=== PATIENT | male | born 1930 | race Caucasian/White ===

== ENCOUNTER 2020-02-18 08:07 | Emergency (ER) | payer MEDICARE, BC ==
[2020-02-18 08:32] LABS: ABSOLUTE EOSINOPHILS # (AUTO) 0.2 10^3/uL (0.0-0.6); ABSOLUTE LYMPHOCYTES (AUTO) 1.5 10^3/uL (0.5-4.7); ABSOLUTE MONOCYTES (AUTO) 0.7 10^3/uL (0.1-1.4); ABSOLUTE NEUT (AUTO) 3.6 10^3/uL (1.7-8.2); BASOPHILS % (AUTO) 0.4 % (0-2); EOSINOPHILS % (AUTO) 2.8 % (0-6); HEMATOCRIT 30.6 % (37.9-51.0); HEMOGLOBIN 10.2 g/dL (13.5-17.0); LYMPHOCYTES % (AUTO) 25.2 % (13-45); MEAN CORPUSCULAR HEMOGLOBIN 30.1 pg (27.0-33.4); MEAN CORPUSCULAR HGB CONC 33.5 g/dL (32.0-36.0); MEAN CORPUSCULAR VOLUME 90 fl (80-97); MONOCYTES % (AUTO) 11.7 % (3-13); PLATELET COUNT 143 10^3/uL (150-450); RED BLOOD COUNT 3.41 10^6/uL (4.35-5.55); RED CELL DISTRIBUTION WIDTH 14.7 % (11.5-14.0); SEGMENTED NEUTROPHILS % (AUTO) 59.9 % (42-78); TOTAL CELLS COUNTED % (AUTO) 100 %
[2020-02-18 09:01] LABS: ALBUMIN 3.4 g/dL (3.5-5.0); ALKALINE PHOSPHATASE 34 U/L (38-126); ASPARTATE AMINO TRANSFERASE 16 U/L (17-59); BILIRUBIN,TOTAL 0.2 mg/dL (0.2-1.3); BLOOD UREA NITROGEN 14 mg/dL (7-20); CALCIUM 8.2 mg/dL (8.4-10.2); CARBON DIOXIDE 34 mmol/L (22-30); CHLORIDE 102 mmol/L (98-107); CREATINE KINASE 59 U/L (55-170); GLUCOSE 115 mg/dL (75-110); POTASSIUM 4.2 mmol/L (3.6-5.0); TOTAL PROTEIN 5.8 g/dL (6.3-8.2)
[2020-02-18 09:08] LABS: ANION GAP 3 (5-19)
[2020-02-18 09:13] LABS: CREATINE KINASE MB 1.72 ng/mL (<4.55)
[2020-02-18 09:18] LABS: TROPONIN I < 0.012 ng/mL
[2020-02-18] MEDS ORDERED: ASPIRIN 81 MG TABLET, CHEWABLE PO ONE (10:42)
[2020-02-18] MEDS ORDERED: NITROGLYCERIN 2% OINTMENT 1 GM PACKET TP ONE (10:43)
[2020-02-18 10:58] LABS: PROTHROMBIN TIME 13.2 SEC (11.4-15.4)
[2020-02-18 10:59] LABS: PARTIAL THROMBOPLASTIN TIME 30.8 SEC (23.5-35.8)
[2020-02-18 11:25] LABS: APPEARANCE,URINE CLEAR; BILIRUBIN,URINE NEGATIVE (NEGATIVE); COLOR,URINE STRAW; GLUCOSE, URINE NEGATIVE (NEGATIVE); KETONES,URINE NEGATIVE (NEGATIVE); LEUKOCYTE ESTERASE,URINE NEGATIVE (NEGATIVE); NITRITE,URINE NEGATIVE (NEGATIVE); PROTEIN,URINE NEGATIVE (NEGATIVE); URINE SPECIFIC GRAVITY 1.006; UROBILINOGEN,URINE NEGATIVE mg/dL (<2.0)
--- NOTE | 2020-02-18 11:50 | EKG REPORT ---
SEVERITY:- BORDERLINE ECG - SINUS RHYTHM BORDERLINE ST ELEVATION, ANTERIOR LEADS : Confirmed by: Oren Cleaning MD 18-Feb-2020 11:49:42
--- NOTE | 2020-02-18 11:58 | RADIOLOGY REPORT (SQ) ---
EXAM DESCRIPTION: CHEST SINGLE VIEW IMAGES COMPLETED DATE/TIME: 02/18/2020 10:15 am REASON FOR STUDY: chest pain COMPARISON: None. EXAM PARAMETERS: NUMBER OF VIEWS: One view. TECHNIQUE: Single frontal radiographic view of the chest acquired. RADIATION DOSE: NA LIMITATIONS: None. FINDINGS: LUNGS AND PLEURA: Lungs are hyperinflated. Biapical pleural-parenchymal scarring. No foc al consolidation or pleural effusion. No pneumothorax. MEDIASTINUM AND HILAR STRUCTURES: No masses. Contour normal. HEART AND VASCULAR STRUCTURES: Heart normal in size. Normal vasculature. BONES: No acute findings. HARDWARE: None in the chest. OTHER: No other significant finding. IMPRESSION: NO ACUTE RADIOGRAPHIC FINDING IN THE CHEST. TECHNICAL DOCUMENTATION: JOB ID: [id number] 2010 [employer]- All Rights Reserved Reading location - IP/workstation name: [email or web address]
--- NOTE | 2020-02-18 15:23 | ER Document Report ---
Entered by JESSY LEARY SCRIBE 02/18/20 1018 Acting as scribe for:MAGY SHULTZ MD ED General - General Chief Complaint: Chest Pain Stated Complaint: CHEST PAIN Time Seen by Provider: 02/18/20 10:13 Primary Care Provider: ETHEL KAPOOR MD [Primary Care Provider] - Follow up as needed Mode of Arrival: Medic Information source: Patient Notes: This 89 year old male patient presents to the emergency department today with complaints of chest pain which began today prior to arrival. Patient states that he had just gotten out of bed, was sitting in his chair, went to get up when he developed a sharp pain across his chest. Patient states the pain lasted for approximately 20 to 30 minutes. Patient states that he took nitro and had no relief after 1 nitroglycerin but the pain did subside after taking 2 nitroglycerin. Patient is on has known CAD on Plavix with his last stent being placed in July 2019. Patient states he felt clammy, sweaty, and nauseated but denies vomiting, shortness of breath no fevers, chills or cough. - Related Data Allergies/Adverse Reactions: No Known Allergies Allergy (Unverified 02/18/20 08:45) Home Medications: Albuterol, Levothyroxine, Finasteride, Amlodipine, Metoprolol, Clopidogrel, Atorvastatin Past Medical History - General Information source: Patient - Social History Smoking Status: Former Smoker - quit 20 years ago Cigarette use (# per day): No Frequency of alcohol use: None Drug Abuse: None Family History: Reviewed & Not Pertinent Patient has homicidal ideation: No - Past Medical History Cardiac Medical History: Reports: Hx Hypercholesterolemia, Hx Hypertension Pulmonary Medical History: Reports: Hx COPD Past Surgical History: Reports: Hx Cardiac Catheterization - stent x 2 Review of Systems - Review of Systems Constitutional: See HPI, Diaphoresis. denies: Chills, Fever EENT: No symptoms reported Cardiovascular: See HPI, Chest pain Respiratory: denies: Cough, Short of breath Gastrointestinal: See HPI, Nausea. denies: Vomiting Genitourinary: No symptoms reported Male Genitourinary: No symptoms reported Musculoskeletal: No symptoms reported Skin: No symptoms reported Hematologic/Lymphatic: No symptoms reported Neurological/Psychological: No symptoms reported -: Yes All other systems reviewed and negative Physical Exam - Vital signs Vitals: Pulse Ox 99 02/18/20 08:12 - Notes Notes: Physical Exam: General: Alert, appears age appropriate. HEENT: Normocephalic. Atraumatic. PERRL. Extraocular movements intact. Oropharynx clear. Neck: Supple. Non-tender. Respiratory: No respiratory distress. Clear and equal breath sounds bilaterally. Cardiovascular: Regular rate and rhythm. Abdominal: Normal Inspection. Non-tender. No distension. Normal Bowel Sounds. Back: No gross abnormalities. Extremities: Moves all four extremities. Upper extremities: Normal inspection. Normal ROM. Lower extremities: Normal inspection. No edema. Normal ROM. Neurological: Normal cognition. AAOx4. Normal speech. Psychological: Normal affect. Normal Mood. Skin: Warm. Dry. Normal color. Course - Re-evaluation Re-evalutation: 02/18/20 15:16 Patient is resting comfortably not showing any signs of distress denies any chest pain at this time. 02/18/20 15:[address] Bass cardiology consult and [facility] in [facility] he recommended that patient has been stable within our department over several hours without any chest pain and no acute EKG changes and stable troponin x2 therefore he recommended patient be placed on Imdur 30 mg once a day and that he is going to recommend he follow-up with his primary geriatrician in 1 week. - Vital Signs Vital signs: Temp Pulse Resp BP Pulse Ox 97.9 F 68 29 H 163/75 H 100 02/18/20 08:25 02/18/20 08:24 02/18/20 12:00 02/18/20 13:01 02/18/20 13:01 - Laboratory Result Diagrams: 02/18/20 08:05 02/18/20 08:05 Laboratory results interpreted by me: 02/18/20 02/18/20 08:05 08:05 RBC 3.41 L Hgb 10.2 L Hct 30.6 L RDW 14.7 H Plt Count 143 L Carbon Dioxide 34 H Anion Gap 3 L Glucose 115 H Calcium 8.2 L AST 16 L Alkaline Phosphatase 34 L Total Protein 5.8 L Albumin 3.4 L 02/18/20 15:17 Laboratory results shows stable patient with a troponin level that is continued to be normal x2. - Diagnostic Test Radiology reviewed: Image reviewed, Reports reviewed Radiology results interpreted by me: 02/18/20 15:17 Chest x-ray showed no acute process. - EKG Interpretation by Me Additional EKG results interpreted by me: 02/18/20 15:17 12-lead EKG shows normal sinus rhythm rate of [address] elevation in anterior leads second EKG today shows normal sinus rhythm rate of [address] elevations in the anterior chest leads with no reciprocal changes. No STEMI. 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
[2020-02-18 15:40] VITALS: BP 166/61
--- NOTE | 2020-02-18 19:01 | EKG REPORT ---
SEVERITY:- NORMAL ECG - SINUS RHYTHM : Confirmed by: Oren Cleaning MD 18-Feb-2020 19:00:45
== END 2020-02-18 15:43 | disposition home or self-care (01) ==
LOC: ER 08:07
DX: I25.119 Atherosclerotic heart disease of native coronary artery with unspecified angina pectoris (principal); R07.9 Chest pain, unspecified; R61 Generalized hyperhidrosis; E78.00 Pure hypercholesterolemia, unspecified; I10 Essential (primary) hypertension; J44.9 Chronic obstructive pulmonary disease, unspecified
CPT/HCPCS: 93005 ×2; 99285; 36415; 82553; 82550; 85025; 85610; 85730; 80053; 81001; 84484; 83880; 71045; 93010; A9270 ×2